=== PATIENT | female | born 1975 ===

== ENCOUNTER → 2023-03-22 | Outpatient (CLI) | payer OTHER | END | disposition home or self-care (01) | LOC: LAB 13:46 → LAB SHORT 13:46 | PROVIDERS: Internal Medicine Endocrinology, Diabetes & Metabolism | DX: Z09 Encounter for follow-up examination after completed treatment for conditions other than malignant neoplasm (principal); Z86.011 Personal history of benign neoplasm of the brain | CPT/HCPCS: 82530 ==

== ENCOUNTER → 2024-07-12 | Outpatient (CLI) | payer OTHER | END | disposition home or self-care (01) | LOC: LAB SHORT 17:29 → LAB 17:29 | DX: R30.0 Dysuria (principal) | CPT/HCPCS: 87086 ==